=== PATIENT | male | born 1965 | race Caucasian/White ===

== ENCOUNTER → 2024-12-16 15:23 | Outpatient (BNVA) | payer OTHER, SELFPAY | PROVIDERS: PCP Nurse Practitioner Family; Visit Provider Nurse Practitioner Family | DX: R01.1 Cardiac murmur, unspecified (principal) | CPT/HCPCS: 80053; 80061; 83036; 83880; 84443; 85025 ==

== ENCOUNTER → 2024-12-23 15:46 | Outpatient (BNVA) | payer OTHER, SELFPAY | PROVIDERS: PCP Nurse Practitioner Family; Visit Provider Nurse Practitioner Family | DX: R01.1 Cardiac murmur, unspecified (principal) | CPT/HCPCS: 80048; 83880 ==

== ENCOUNTER → 2024-12-30 15:34 | Outpatient (BNVA) | payer OTHER, SELFPAY | PROVIDERS: PCP Nurse Practitioner Family; Visit Provider Nurse Practitioner Family | DX: M79.671 Pain in right foot (principal) | CPT/HCPCS: 73630 ==

== ENCOUNTER 2025-01-05 14:17 | Outpatient (CLI) | payer OTHER, SELFPAY ==
--- NOTE | 2025-01-05 15:15 | USCV_ITS ---
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 Technologist: R [place] [facility] [place]: [place] Risk Factors: Previous Vascular Surgery: Right Brachial BP: / Left Brachial BP: / Right Left Velocity (cm/s) Spectral Plaque Velocity (cm/s) Spectral Plaque Syst/Diast Broadening Syst/Diast Broadening 96.30/ 10.20 Prox CCA 112.30/ 9.80 84.20/ 6.70 Mid CCA 114.80/ 9.80 75.60/ 6.70 Distal CCA 103.70/ 7.40 31.90/ 4.80 Prox ICA 23.20 / 3.10 54.90/ 9.70 Mid ICA 58.40 / 11.10 52.40/ 8.40 Distal ICA 68.80 / 16.60 57.80 ECA 52.80 0.70 ICA/CCA 0.60 Antegrade Vertebral Antegrade 41.30/ 3.50 cm/s 63.20/ 7.50 cm/s Tri Subclavian Tri 133.7 168.1 0 0 CONCLUSIONS Right ICA stenosis <50%. Mild atheromatous plaque right carotid bulb/ICA. Left ICA stenosis <50%. Mild atheromatous plaque left carotid bulb/ICA. Normal antegrade Doppler flow noted in the right vertebral artery. Normal antegrade Doppler flow noted in the left vertebral artery. Neo Allen MD (Electronically Signed) Final Date: 05 January 2025 16:33 S
== END 2025-01-05 14:18 | disposition home or self-care (01) ==
LOC: RAD 14:22
PROVIDERS: PCP Nurse Practitioner Family; Visit Provider Nurse Practitioner Family
DX: R09.89 Other specified symptoms and signs involving the circulatory and respiratory systems (principal)
CPT/HCPCS: 93880

== ENCOUNTER → 2025-01-13 16:00 | Outpatient (BNVA) | payer OTHER, SELFPAY | PROVIDERS: PCP Nurse Practitioner Family; Visit Provider Nurse Practitioner Family | DX: R60.0 Localized edema (principal) | CPT/HCPCS: 80048; 83880; 84439; 84443; 85025 ==

== ENCOUNTER 2025-02-04 14:38 | Outpatient (CLI) | payer OTHER, SELFPAY ==
--- NOTE | 2025-02-04 14:15 | USCV_ITS ---
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 Technologist: Exam Location: [facility] [place] Indication: sob cp BP: 140 / 78 HR: 77 Rhythm: Sinus Technical Quality: Adequate MEASUREMENTS (Male / Female) Normal Values 2D ECHO LV Diastolic Diameter PLAX 7.2 cm 4.2 - 5.9 / 3.9 - 5.3 cm IVS Diastolic Thickness 1.4 cm 0.6 - 1.0 / 0.6 - 0.9 cm IVS Systolic Thickness 2.3 cm LVPW Diastolic Thickness 1.4 cm 0.6 - 1.0 / 0.6 - 0.9 cm LVPW Systolic Thickness 2.0 cm LVOT Diameter 2.2 cm LV Ejection Fraction 2D Teich 60.3 % LV Ejection Fraction MOD 4C 61.0 % LV Ejection Fraction MOD 2C 59.9 % LV Ejection Fraction 2C AL 61.3 % LA Diameter 4.4 cm RA Systolic Volume 4C AL 43.8 ml RA Systolic Volume 4C MOD 42.2 ml Aorta at Sinotubular Diameter 3.5 cm M-MODE LA Ao Ratio MM 1.0 AV Cusp Separation MM 3.2 cm DOPPLER AV Peak Velocity 320.3 cm/s LVOT Peak Velocity 115.0 cm/s AV Area Cont Eq vti 3.3 cm squared AV Area Cont Eq pk 1.4 cm squared MV Peak Velocity 164.0 cm/s MV Area PHT 4.6 cm squared Mitral E to A Ratio 1.3 TR Peak Velocity 186.0 cm/s TR Peak Gradient 13.8 mmHg TV Peak E Velocity 126.0 cm/s PV Peak Velocity 143.0 cm/s FINDINGS Left Ventricle Normal left ventricular size and systolic function, EF 59%. Mild global left ventricular hypertrophy. Normal left ventricular diastolic function. Right Ventricle Normal right ventricular size and systolic function Right Atrium Normal right atrial size Left Atrium Mildly enlarged left atrium Mitral Valve Normal mitral valve structure and function Aortic Valve Aortic valve not well-visualized. Mild aortic valve regurgitation. No aortic valve stenosis Tricuspid Valve Trace tricuspid valve regurgitation. Normal pulmonary pressure Pulmonic Valve Normal structure and function of the pulmonic valve Pericardium No pericardial effusion Aorta Normal aortic root and ascending aorta size. IVC Normal IVC diameter CONCLUSIONS Normal left ventricular systolic function, EF 59% Mildly enlarged left atrium Mild aortic valve regurgitation Mild left ventricular hypertrophy Joce Harrell MD, FACC (Electronically Signed) Final Date: 07 February 2025 19:53 S
== END 2025-02-04 14:39 | disposition home or self-care (01) ==
LOC: RAD 14:41
PROVIDERS: PCP Nurse Practitioner Family; Visit Provider Nurse Practitioner Family
DX: R01.1 Cardiac murmur, unspecified (principal); I51.7 Cardiomegaly; I35.1 Nonrheumatic aortic (valve) insufficiency
CPT/HCPCS: 93306

== ENCOUNTER → 2025-02-24 13:57 | Outpatient (BNVA) | payer OTHER, SELFPAY | PROVIDERS: PCP Nurse Practitioner Family; Visit Provider Internal Medicine | DX: R07.9 Chest pain, unspecified (principal); R60.0 Localized edema; R06.09 Other forms of dyspnea; R01.1 Cardiac murmur, unspecified | CPT/HCPCS: 36415; 80048; 83880; 93005 ==